=== PATIENT | female | born 1945 | race Caucasian/White ===

== ENCOUNTER 2016-05-11 14:30 | Outpatient (CLI) | payer MEDICARE | END 2016-05-11 14:31 | disposition home or self-care (01) | DX: I63.9 Cerebral infarction, unspecified (principal) ==

== ENCOUNTER 2016-06-01 14:54 | Outpatient (CLI) | payer MEDICARE | END 2016-06-01 14:55 | disposition home or self-care (01) | DX: I63.9 Cerebral infarction, unspecified (principal) ==

== ENCOUNTER 2016-06-16 11:05 | Outpatient (CLI) | payer MEDICARE ==
[2016-06-16 12:50] LABS: INR 1.5 (0.8-1.2); PT - PROTHROMBIN TIME 17.4 secs (9.9-12.6)
== END 2016-06-16 11:06 | disposition home or self-care (01) ==
LOC: LAB.N 11:05
PROVIDERS: ATTEND Family Medicine
DX: I63.9 Cerebral infarction, unspecified (principal)
CPT/HCPCS: 36415; 85610

== ENCOUNTER 2016-07-06 13:30 | Outpatient (CLI) | payer MEDICARE | END 2016-07-06 13:31 | DX: I63.9 Cerebral infarction, unspecified (principal) ==

== ENCOUNTER 2016-07-15 01:36 | Outpatient (CLI) | payer MEDICARE | END 2016-07-15 01:37 | disposition critical access hospital (66) | DX: M25.512 Pain in left shoulder (principal); M79.602 Pain in left arm; W18.30XA Fall on same level, unspecified, initial encounter; Y92.009 Unspecified place in unspecified non-institutional (private) residence as the place of occurrence of the external cause | CPT/HCPCS: A0425; A0429 ==

== ENCOUNTER 2016-07-15 01:54 | Emergency (ER) | payer MEDICARE ==
[2016-07-15] MEDS ORDERED: MORPHINE 2 MG/ML SYRINGE IVP STA ×2 (03:09→03:44)
[2016-07-15] MEDS ORDERED: MORPHINE 2 MG/ML SYRINGE ONE ×2 (03:11→04:21)
[2016-07-15] MEDS ORDERED: oxyCODONE/ACET 5/325 Prepack 4 PO STA (03:44)
[2016-07-15] MEDS ORDERED: HYDROcod/ACET 5/325 Prepack 6 PO ONE (04:22)
== END 2016-07-15 05:06 | disposition home or self-care (01) ==
DX: S42.212A Unspecified displaced fracture of surgical neck of left humerus, initial encounter for closed fracture (principal); S00.31XA Abrasion of nose, initial encounter; W01.0XXA Fall on same level from slipping, tripping and stumbling without subsequent striking against object, initial encounter; Y93.01 Activity, walking, marching and hiking; Y92.009 Unspecified place in unspecified non-institutional (private) residence as the place of occurrence of the external cause; Y99.8 Other external cause status; I10 Essential (primary) hypertension; Z86.73 Personal history of transient ischemic attack (TIA), and cerebral infarction without residual deficits; Z79.01 Long term (current) use of anticoagulants

== ENCOUNTER 2016-08-15 11:57 | Outpatient (CLI) | payer MEDICARE | END 2016-08-15 11:58 | disposition home or self-care (01) | DX: I63.9 Cerebral infarction, unspecified (principal) ==

== ENCOUNTER 2016-09-23 08:31 | Outpatient (CLI) | payer MEDICARE ==
[2016-09-23 14:16] LABS: INR 1.6 (0.8-1.2); PT - PROTHROMBIN TIME 17.5 secs (9.9-12.6)
== END 2016-09-23 08:32 | disposition home or self-care (01) ==
LOC: LAB.N 08:31
PROVIDERS: ATTEND Family Medicine
DX: I63.9 Cerebral infarction, unspecified (principal)
CPT/HCPCS: 36415; 85610

== ENCOUNTER 2016-10-06 18:54 | Outpatient (CLI) | payer MEDICARE | END 2016-10-06 18:55 | disposition home or self-care (01) | DX: I63.9 Cerebral infarction, unspecified (principal) ==

== ENCOUNTER 2016-10-12 09:50 | Outpatient (CLI) | payer MEDICARE ==
[2016-10-12 12:51] LABS: BASOPHILS % (AUTO) 0.6 %; EOSINOPHILS % (AUTO) 0.3 %; HCT - HEMATOCRIT 37.2 % (37.0-47.0); HGB - HEMOGLOBIN 12.6 g/dL (12.0-16.0); LYMPHOCYTES # (AUTO) 1.3 10^3/uL (1.5-3.5); LYMPHOCYTES % (AUTO) 24.5 %; MEAN CORPUSCULAR HEMOGLOBIN 30.5 pg (27.0-31.0); MEAN CORPUSCULAR HGB CONC 33.8 g/dL (32.0-36.0); MEAN CORPUSCULAR VOLUME 90.2 fL (81.0-99.0); MEAN PLATELET VOLUME 7.3 fL (7.9-10.8); MONOCYTES # (AUTO) 0.3 10^3/uL (0.0-1.0); MONOCYTES % (AUTO) 6.6 %; NEUTROPHILS # (AUTO) 3.5 10^3/uL (1.5-6.6); RED BLOOD COUNT 4.12 10^6/uL (4.20-5.40); RED CELL DISTRIBUTION WIDTH 14.1 % (12.0-15.0); UNCORRECTED WHITE BLOOD COUNT 5.2 x10^3/uL; WHITE BLOOD COUNT 5.2 x10^3/uL (4.8-10.8)
[2016-10-12 13:09] LABS: ALBUMIN/GLOBULIN RATIO 1.6 (1.0-2.2); BILIRUBIN,TOTAL 0.4 mg/dL (0.2-1.0); BUN - BLOOD UREA NITROGEN 18 mg/dL (6-20); CALCIUM 9.1 mg/dL (8.5-10.3); CARBON DIOXIDE - CO2 28 mmol/L (21-32); CHLORIDE 106 mmol/L (101-111); CHOL/HDL RATIO 2.3 (<4.4); CHOLESTEROL 161 mg/dL; CREATININE 0.9 mg/dL (0.4-1.0); GFR - MDRD 62 (>89); GLUCOSE 79 mg/dL (70-100); HDL CHOLESTEROL 70 mg/dL; POTASSIUM 3.8 mmol/L (3.5-5.0); SODIUM 140 mmol/L (135-145); TOTAL PROTEIN 7.2 g/dL (6.7-8.2); TRIGLYCERIDES 98 mg/dL; VLDL CHOLESTEROL 20 mg/dL
== END 2016-10-12 09:51 | disposition home or self-care (01) ==
LOC: LAB.N 09:50
PROVIDERS: ATTEND Family Medicine
DX: E78.5 Hyperlipidemia, unspecified (principal); I10 Essential (primary) hypertension; D70.9 Neutropenia, unspecified
CPT/HCPCS: 36415; 80053; 80061; 84443; 85025

== ENCOUNTER 2016-12-28 08:43 | Outpatient (CLI) | payer MEDICARE ==
[2016-12-28 12:30] LABS: INR 2.3 (0.8-1.2); PT - PROTHROMBIN TIME 26.4 secs (9.9-12.6)
== END 2016-12-28 08:44 | disposition home or self-care (01) ==
LOC: LAB.N 08:43
PROVIDERS: ATTEND Family Medicine
DX: I63.9 Cerebral infarction, unspecified (principal)
CPT/HCPCS: 36415; 85610

== ENCOUNTER 2017-01-13 07:37 | Outpatient (CLI) | payer MEDICARE ==
[2017-01-13 14:07] LABS: PT - PROTHROMBIN TIME 57.9 secs (9.9-12.6)
[2017-01-13 14:46] LABS: INR 5.1 (0.8-1.2)
== END 2017-01-13 07:38 | disposition home or self-care (01) ==
LOC: LAB.N 07:37
PROVIDERS: ATTEND Family Medicine
DX: I63.9 Cerebral infarction, unspecified (principal)
CPT/HCPCS: 36415; 85610

== ENCOUNTER 2017-01-16 08:00 | Outpatient (CLI) | payer MEDICARE ==
[2017-01-16 14:28] LABS: INR 2.9 (0.8-1.2)
== END 2017-01-16 08:01 | disposition home or self-care (01) ==
LOC: LAB.N 08:00
PROVIDERS: ATTEND Family Medicine
DX: I63.9 Cerebral infarction, unspecified (principal)
CPT/HCPCS: 36415; 85610

== ENCOUNTER 2017-01-23 08:34 | Outpatient (CLI) | payer MEDICARE ==
[2017-01-23 14:04] LABS: INR 2.9 (0.8-1.2); PT - PROTHROMBIN TIME 32.8 secs (9.9-12.6)
== END 2017-01-23 08:35 | disposition home or self-care (01) ==
LOC: LAB.N 08:34
PROVIDERS: ATTEND Family Medicine
DX: I63.9 Cerebral infarction, unspecified (principal)
CPT/HCPCS: 36415; 85610

== ENCOUNTER 2017-01-31 07:38 | Outpatient (CLI) | payer MEDICARE ==
[2017-01-31 12:52] LABS: INR 2.9 (0.8-1.2); PT - PROTHROMBIN TIME 32.5 secs (9.9-12.6)
== END 2017-01-31 07:39 | disposition home or self-care (01) ==
LOC: LAB.N 07:38
PROVIDERS: ATTEND Family Medicine
DX: I63.9 Cerebral infarction, unspecified (principal)
CPT/HCPCS: 36415; 85610

== ENCOUNTER 2017-02-13 08:17 | Outpatient (CLI) | payer MEDICARE ==
[2017-02-13 13:42] LABS: INR 3.1 (0.8-1.2); PT - PROTHROMBIN TIME 35.6 secs (9.9-12.6)
== END 2017-02-13 08:18 | disposition home or self-care (01) ==
LOC: LAB.N 08:17
PROVIDERS: ATTEND Family Medicine
DX: I63.9 Cerebral infarction, unspecified (principal)
CPT/HCPCS: 36415; 85610

== ENCOUNTER 2017-02-20 08:00 | Outpatient (CLI) | payer MEDICARE ==
[2017-02-20 13:54] LABS: INR 1.6 (0.8-1.2); PT - PROTHROMBIN TIME 18.5 secs (9.9-12.6)
== END 2017-02-20 08:01 | disposition home or self-care (01) ==
LOC: LAB.N 08:00
PROVIDERS: ATTEND Family Medicine
DX: I63.9 Cerebral infarction, unspecified (principal)
CPT/HCPCS: 36415; 85610

== ENCOUNTER 2017-02-28 08:00 | Outpatient (CLI) | payer MEDICARE ==
[2017-02-28 12:42] LABS: INR 2.4 (0.8-1.2); PT - PROTHROMBIN TIME 26.6 secs (9.9-12.6)
== END 2017-02-28 08:01 | disposition home or self-care (01) ==
LOC: LAB.N 08:00
PROVIDERS: ATTEND Family Medicine
DX: I63.9 Cerebral infarction, unspecified (principal)
CPT/HCPCS: 36415; 85610

== ENCOUNTER 2017-03-20 09:31 | Outpatient (CLI) | payer MEDICARE ==
[2017-03-20 13:40] LABS: INR 2.3 (0.8-1.2); PT - PROTHROMBIN TIME 25.1 secs (9.9-12.6)
== END 2017-03-20 09:32 | disposition home or self-care (01) ==
LOC: LAB.N 09:31
PROVIDERS: ATTEND Family Medicine
DX: I63.9 Cerebral infarction, unspecified (principal)
CPT/HCPCS: 36415; 85610

== ENCOUNTER 2017-04-10 09:26 | Outpatient (CLI) | payer MEDICARE ==
[2017-04-10 12:35] LABS: INR 1.6 (0.8-1.2); PT - PROTHROMBIN TIME 17.5 secs (9.9-12.6)
== END 2017-04-10 09:27 | disposition home or self-care (01) ==
LOC: LAB.N 09:26
PROVIDERS: ATTEND Family Medicine
DX: I63.9 Cerebral infarction, unspecified (principal)
CPT/HCPCS: 36415; 85610

== ENCOUNTER 2017-04-24 09:15 | Outpatient (CLI) | payer MEDICARE ==
[2017-04-24 12:36] LABS: INR 2.2 (0.8-1.2); PT - PROTHROMBIN TIME 23.9 secs (9.9-12.6)
== END 2017-04-24 09:16 | disposition home or self-care (01) ==
LOC: LAB.N 09:15
PROVIDERS: ATTEND Family Medicine
DX: I63.9 Cerebral infarction, unspecified (principal)
CPT/HCPCS: 36415; 85610

== ENCOUNTER 2017-05-11 08:56 | Outpatient (CLI) | payer MEDICARE ==
[2017-05-11 13:11] LABS: PT - PROTHROMBIN TIME 32.8 secs (9.9-12.6)
== END 2017-05-11 08:57 | disposition home or self-care (01) ==
LOC: LAB.N 08:56
PROVIDERS: ATTEND Family Medicine
DX: I63.9 Cerebral infarction, unspecified (principal)
CPT/HCPCS: 36415; 85610

== ENCOUNTER 2017-05-24 08:00 | Outpatient (CLI) | payer MEDICARE ==
[2017-05-24 13:15] LABS: INR 2.8 (0.8-1.2); PT - PROTHROMBIN TIME 30.1 secs (9.9-12.6)
== END 2017-05-24 08:01 | disposition home or self-care (01) ==
LOC: LAB.N 08:00
PROVIDERS: ATTEND Family Medicine
DX: I63.9 Cerebral infarction, unspecified (principal)
CPT/HCPCS: 36415; 85610

== ENCOUNTER 2017-05-26 12:13 | Outpatient (CLI) | payer MEDICARE | END 2017-05-26 12:14 | disposition critical access hospital (66) | LOC: EMS 12:13 | PROVIDERS: ATTEND Surgery | DX: R53.1 Weakness (principal); R53.83 Other fatigue; M54.5 Low back pain | CPT/HCPCS: A0425; A0429 ==

== ENCOUNTER 2017-05-26 12:34 | Emergency (ER) | payer MEDICARE ==
[2017-05-26] MEDS ORDERED: SODIUM CHLORIDE 0.9% 1,000 ML IV ONE (13:32)
[2017-05-26 14:01] LABS: BASOPHILS % (AUTO) 0.2 %; HGB - HEMOGLOBIN 12.3 g/dL (12.0-16.0); LYMPHOCYTES # (AUTO) 0.6 10^3/uL (1.5-3.5); LYMPHOCYTES % (AUTO) 4.2 %; MEAN CORPUSCULAR HEMOGLOBIN 30.5 pg (27.0-31.0); MEAN CORPUSCULAR HGB CONC 34.4 g/dL (32.0-36.0); MEAN CORPUSCULAR VOLUME 88.6 fL (81.0-99.0); MEAN PLATELET VOLUME 6.6 fL (7.9-10.8); MONOCYTES # (AUTO) 1.1 10^3/uL (0.0-1.0); MONOCYTES % (AUTO) 8.3 %; NEUTROPHILS # (AUTO) 11.5 10^3/uL (1.5-6.6); NEUTROPHILS % (AUTO) 87.3 %; PLT - PLATELET COUNT 197 10^3/uL (130-450); RED BLOOD COUNT 4.02 10^6/uL (4.20-5.40); RED CELL DISTRIBUTION WIDTH 13.6 % (12.0-15.0); WHITE BLOOD COUNT 13.1 x10^3/uL (4.8-10.8)
[2017-05-26 14:22] LABS: ALBUMIN 4.2 g/dL (3.2-5.5); ALBUMIN/GLOBULIN RATIO 1.2 (1.0-2.2); BILIRUBIN,TOTAL 1.3 mg/dL (0.2-1.0); CALCIUM 9.3 mg/dL (8.5-10.3); CREATININE 0.9 mg/dL (0.4-1.0); TOTAL PROTEIN 7.6 g/dL (6.7-8.2)
[2017-05-26] MEDS ORDERED: MORPHINE 2 MG/ML CARPUJECT IVP STA (14:23)
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
[2017-05-26] MEDS ORDERED: IOPAMIDOL-300 100 ML VIAL ONE ×2 (14:35→14:44)
[2017-05-26] MEDS ORDERED: IOPAMIDOL-300 100 ML VIAL IVP ONE (15:17)
--- NOTE | 2017-05-26 15:50 | CT Preliminary Report ---
Exam: CT ABDOMEN/PELVIS W/ IMPRESSION: 1. Colonic diverticulosis without evidence for acute diverticulitis. 2. Normal appendix. 3. Mild to moderate hiatal hernia. 4. Grade 1-2 anterolisthesis of L5-S1 with large osteophytes and osseous fusion of the vertebral bodi es and facet joints. No acute bone findings are seen. 5. Mild cardiomegaly. Atelectasis could be present in the lung bases, differential includes mild pulm onary fibrosis or pulmonary edema. 6. Small fat-containing umbilical hernia. 7. Otherwise, as above. [facility] SITE ID: [id number]
--- NOTE | 2017-05-26 15:56 | CT Report ---
EXAM: CT ABDOMEN AND PELVIS EXAM DATE: 05/26/2017 03:12 PM. CLINICAL HISTORY: Abdominal pain, back pain. COMPARISONS: None. TECHNIQUE: Routine helical CT imaging was performed through the abdomen and pelvis. IV contrast: 100 mL of Isovue-300. Enteric contrast: No. Reconstructions: Coronal and sagittal. In accordance with CT protocol optimization, one or more of the following dose reduction techniques w ere utilized for this exam: automated exposure control, adjustment of mA and/or KV based on patient s ize, or use of iterative reconstructive technique. FINDINGS: Lung bases: Small to moderate hiatal hernia. Mild cardiomegaly. Atelectasis could be presen t in the lung bases, differential includes mild pulmonary fibrosis or pulmonary edema. Liver: Small low-density mass not fully characterized in the right hepatic lobe adjacent to the gallb ladder, it measures 8 mm, could represent a small liver cyst. Gallbladder: Normal. Bile ducts: Normal Pancreas: Unremarkable. Spleen: Unremarkable. Adrenals: Unremarkable. Kidneys: A few small low-density masses not fully characterized in the kidneys. One of the largest is seen laterally in left kidney midpole, measuring 8 mm, probably a renal cyst. No hydronephrosis. Bowel: Small to moderate hiatal hernia. Mobile cecum extending to the medial midabdomen. Normal appen james. Moderate left-sided colonic diverticulosis without evidence for acute diverticulitis, mild right -sided colonic diverticulosis. There are no dilated bowel loops seen to suggest obstruction. No acute bowel findings are seen. No fr ee fluid or free air. No abscess. Small fat-containing umbilical hernia measuring 1.9 cm. Pelvis: Uterus is anteverted. Mild left adnexal varices. The bladder is unremarkable. Vascular structures: No acute findings. Bones: Grade 1-2 anterolisthesis of L5-S1 with large osteophytes and osseous fusion of the vertebral bodies and facet joints. No acute bone findings are seen. IMPRESSION: 1. Colonic diverticulosis without evidence for acute diverticulitis. 2. Normal appendix. 3. Mild to moderate hiatal hernia. 4.Grade 1-2 anterolisthesis of L5-S1 with large osteophytes and osseous fusion of the vertebral telma s and facet joints. No acute bone findings are seen. 5. Mild cardiomegaly. Atelectasis could be present in the lung bases, differential includes mild pulm onary fibrosis or pulmonary edema. 6. Small fat-containing umbilical hernia. 7. Otherwise, as above. [facility] Referring Provider Line: [phone] SITE ID: [id number]
[2017-05-26] MEDS ORDERED: HYDROmorphone 1 MG/ML SYRINGE IVP STA (16:38)
--- NOTE | 2017-05-26 17:09 | XRAY Preliminary Report ---
Exam: XR CHEST 1 VIEW X-RAY IMPRESSION: Normal single view chest. [facility] SITE ID: [id number]
--- NOTE | 2017-05-26 17:20 | XRAY Report ---
EXAM: CHEST RADIOGRAPHY EXAM DATE: 05/26/2017 04:47 PM. CLINICAL HISTORY: Chest pain. COMPARISON: None. TECHNIQUE: 1 view. FINDINGS: Lungs/Pleura: No focal opacities evident. No pleural effusion. No pneumothorax. Mediastinum: Within exam limitations, the cardiomediastinal contour is normal. Other: None. IMPRESSION: Normal single-view chest. [facility] Referring Provider Line: [phone] SITE ID: [id number]
[2017-05-26 19:31] LABS: BILIRUBIN,URINE NEGATIVE (NEGATIVE); GLUCOSE, URINE (UA) NEGATIVE (NEGATIVE); KETONES,URINE (UA) NEGATIVE (NEGATIVE); LEUKOCYTE ESTERASE, URINE NEGATIVE (NEGATIVE); NITRITE,URINE POSITIVE (NEGATIVE); OCCULT BLOOD,URINE MODERATE (NEGATIVE); PROTEIN,URINE NEGATIVE (NEGATIVE); UROBILINOGEN,URINE 0.2 (NORMAL) E.U./dL (NORMAL)
[2017-05-26 19:42] LABS: CLARITY,URINE CLEAR (CLEAR)
[2017-05-26 20:00] LABS: BACTERIA,URINE Few /HPF (None Seen); RBC,URINE 0-5 /HPF (0-5); SQUAMOUS EPITHELIAL CELL,UR FEW Squamous (<= Few)
[2017-05-26] MEDS ORDERED: cefTRIAXone 1 GM VIAL IVP STA (20:07)
[2017-05-26 20:23] LABS: INR 3.7 (0.8-1.2); PT - PROTHROMBIN TIME 39.7 secs (9.9-12.6)
[2017-05-26 20:56] VITALS: BP 121/68
== END 2017-05-26 20:56 | disposition home or self-care (01) ==
LOC: EDBD → EDUNIT# → ED 12:34
DX: N30.00 Acute cystitis without hematuria (principal); I10 Essential (primary) hypertension; Z86.73 Personal history of transient ischemic attack (TIA), and cerebral infarction without residual deficits; M19.90 Unspecified osteoarthritis, unspecified site; Z79.01 Long term (current) use of anticoagulants
CPT/HCPCS: 36415; 71045; 74177; 80053; 81001; 83690; 84484; 85025; 85610; 87086; 87181; 96374; 96375; 99284; J1170; 81003

== ENCOUNTER 2017-06-14 06:40 | Outpatient (CLI) | payer MEDICARE | END 2017-06-14 06:41 | disposition short-term general hospital (02) | LOC: EMS 06:40 | PROVIDERS: ATTEND Surgery | DX: M54.9 Dorsalgia, unspecified (principal) | CPT/HCPCS: A0425; A0429 ==

== ENCOUNTER 2017-06-21 08:43 | Outpatient (CLI) | payer MEDICARE | END 2017-06-21 08:44 | disposition short-term general hospital (02) | LOC: EMS 08:43 | PROVIDERS: ATTEND Surgery | DX: R53.1 Weakness (principal); R10.9 Unspecified abdominal pain; M54.9 Dorsalgia, unspecified; M25.559 Pain in unspecified hip; R39.9 Unspecified symptoms and signs involving the genitourinary system; Z91.81 History of falling | CPT/HCPCS: A0425; A0429; A0888 ==